=== PATIENT | male | born 1960 | race Caucasian/White ===

== ENCOUNTER 2022-09-15 14:22 | Emergency (ER) | payer OTHER, SELFPAY ==
--- NOTE | 2022-09-15 14:32 | DI.RAD.S_ITS ---
PROCEDURE: XR TIBIA FIBULA LT 2V INDICATIONS: fall into his boat. leg pain and swelling TECHNIQUE: 2 views of the tibia and fibula were acquired. COMPARISON: None. FINDINGS: Bones: No acute fractures or dislocations. No suspicious bony lesions. Postsurgical changes overlying the anterior proximal tibia. Degenerative changes of the left knee and ankle are present. Soft tissues: No suspicious soft tissue calcifications or masses. IMPRESSION: Left tibia/fibula without acute fracture or dislocation. If there is persistent clinical concern for occult fracture given adequate mechanism of injury, consider repeat imaging in 10-14 days. Dictated by: Rocael Herrera M.D. on 09/15/2022 at 14:58 Approved by: Rocael Herrera M.D. on 09/15/2022 at 14:59
[2022-09-15 14:33] VITALS: BP 128/80; PULSE 73; RESP 18; TEMP 36.6; O2SAT 98; BMI 28.3
[2022-09-15 18:26] VITALS: BP 131/74; PULSE 75; RESP 12; O2SAT 100
--- NOTE | 2022-09-15 18:47 | ED.LOWEXIN ---
HPI - Extremity Injury (Lower) General Chief Complaint: Extremity Injury, Lower Stated Complaint: fall lt leg injury Time Seen by Provider: 09/15/22 18:24 Source: patient Mode of arrival: Family Vehicle History of Present Illness HPI Narrative: Otherwise healthy 62-year-old gentleman who was stepping into his [place] earlier today stumbled a bit and hit the anterior portion of his left sampson on the edge of the boat. Was initially significantly painful with described impressive initial edema. He comes in for further evaluation. He has no other complaints or concerns Related Data Allergies Allergy/AdvReac Type Severity Reaction Status Date / Time No Known Drug Allergies Allergy Verified 09/15/22 14:36 Review of Systems Review of Systems Narrative: Pertinent positive and negative findings as per HPI Patient History Social History Smoking Status: Never smoker Smoking Status: Never smoker alcohol intake frequency: 0-2 drinks per day Substance Use Type: does not use Exam Initial Vital Signs Initial Vital Signs: Vital Signs Temperature 97.8 F 09/15/22 14:33 Pulse Rate 73 09/15/22 14:33 Respiratory Rate 18 09/15/22 14:33 Blood Pressure 128/80 09/15/22 14:33 Pulse Oximetry 98 09/15/22 14:33 Oxygen Delivery Method Room Air 09/15/22 14:33 General: Alert appropriate in no acute distress Respiratory: Able to speak in full sentences, no obvious respiratory distress Skin: No obvious rashes, warm and dry Neurologic: Grossly intact no obvious asymmetries or abnormalities Psych: appropriate insight and affect, cooperative Extremity: Contusion over the left anterior sampson without significant abrasion. He is able to bear weight Course Orders Ordered: ED Orders 09/15/22 14:32 XR tibia fibula LT 2V Stat Vital Signs Vital signs: Vital Signs - 8 hr 09/15/22 14:33 09/15/22 18:26 Temperature 97.8 F Pulse Rate 73 75 Respiratory Rate 18 12 Blood Pressure 128/80 131/74 Pulse Oximetry 98 100 Oxygen Delivery Method Room Air Room Air MDM - Extremity Injury (Lower) MDM Narrative Medical decision making narrative: CC: Trauma left anterior sampson Data collected from: patient, Differential considered: Abrasion, contusion, fracture, bone bruise Exam documented above, pertinent findings include: Minor contusion to the anterior sampson without abrasion. He is able to bear weight Imaging studies independently reviewed: No fractures Discussion: 62-year-old gentleman with injury to the left anterior sampson likely bone bruise with no underlying fracture or continued bleeding. Discussed use of ice, rest ibuprofen Tylenol. Reviewed x-ray results. Questions are answered he is safe for discharge home Discharge Plan Departure Patient Disposition: Home Clinical Impression: Contusion of bone Contusion of left lower leg Qualifiers: Encounter type: initial encounter Qualified Code(s): S80.12XA - Contusion of left lower leg, initial encounter Instructions: DI for Leg Pain Activity Restrictions/Additional Instructions: Thank you for coming in today Fortunately, you did not break any bones. You are going to have a bit of a bruise and swelling on the front of your sampson. I suspect that you also bruised the bone itself. Would expect a day or 2 of discomfort. Please use ice and elevation as needed. You can use the leg as you desire, increasing activity will not make this injury worse. Using 400 mg of ibuprofen (2 [id number] pills) and 1 Tylenol every 6 hours can be very helpful in controlling pain. If you find that you are getting worse or develop any new symptoms, please feel free to return to the emergency department for further evaluation. Stand Alone Forms: Patient Portal/API
== END 2022-09-15 19:00 | disposition home or self-care (01) ==
PROVIDERS: Emergency Provider Emergency Medicine
DX: S80.12XA Contusion of left lower leg, initial encounter (principal); W22.8XXA Striking against or struck by other objects, initial encounter
CPT/HCPCS: 73590; 99283